=== PATIENT | female | born 1995 ===

== ENCOUNTER 2017-01-24 21:40 | Emergency (ER) | payer BC ==
[2017-01-24 22:18] LABS: Basophils % (Auto) 0.7 % (0.0-1.8); Eosinophils % (Auto) 0.5 % (0.0-4.3); Hematocrit 35.2 % (30.3-42.9); Hemoglobin 11.9 gm/dl (10.1-14.3); Mean Corpuscular HGB Conc 34 % (30-34); Mean Corpuscular Hemoglobin 30 pg (28-32); Mean Corpuscular Volume 89 fl (79-97); Platelet Count 236 K/mm3 (140-440); Red Blood Count 3.94 M/mm3 (3.65-5.03); Red Cell Distribution Width 16.2 % (13.2-15.2); White Blood Count 6.7 K/mm3 (4.5-11.0)
[2017-01-24 22:29] LABS: Anion Gap 21 mmol/L; BUN/Creatinine Ratio 13.33; Blood Urea Nitrogen 8 mg/dL (7-17); Calcium 8.6 mg/dL (8.4-10.2); Carbon Dioxide 20 mmol/L (22-30); Chloride 103.6 mmol/L (98-107); Glucose 94 mg/dL (65-100); Sodium 141 mmol/L (137-145)
[2017-01-24 23:09] LABS: Bilirubin,Urine NEG (Negative); Blood,Urine NEG (Negative); Ketones,Urine TR mg/dL (Negative); Leukocyte Esterase,Urine MOD (Negative); Mucus,Urine 3+ /HPF; Nitrite,Urine NEG (Negative); Urobilinogen,Urine < 2.0 mg/dL (<2.0)
[2017-01-25] MEDS ORDERED: TYLENOL ONE (00:39)
[2017-01-25] MEDS ORDERED: TYLENOL PO ONE (00:44)
--- NOTE | 2017-01-25 06:43 | Emergency Department Report ---
ED General Adult HPI - General Chief complaint: Abdominal Pain Stated complaint: ABD CRAMPING Time Seen by Provider: 01/25/17 06:31 Source: patient Mode of arrival: Ambulatory Limitations: No Limitations - History of Present Illness Initial comments: A she describes lower abdominal pain occurring approximately 2 weeks after her last normal cycle. She describes it as crampy and intermittent. It is not severe. She is resting comfortably. She has no other symptoms. She denies any difficulty in urinating vaginal discharge nausea vomiting or diarrhea. She states she's had this problem in the past. She does have an appointment with the production welder on the . She has had no fever. -: days(s) Location: abdomen Radiation: non-radiation Severity scale (0 -10): 3 Quality: other Consistency: intermittent Improves with: none Worsens with: none Associated Symptoms: denies other symptoms Treatments Prior to Arrival: none - Related Data Previous Rx's Medication Instructions Recorded Last Taken Type traMADol [Ultram] 50 mg PO Q6HR PRN #14 tablet 01/25/17 Unknown Rx Allergies Allergy/AdvReac Type Severity Reaction Status Date / Time No Known Allergies Allergy Verified 01/25/17 02:12 ED Review of Systems ROS: Stated complaint: ABD CRAMPING Other details as noted in HPI Constitutional: denies: chills, fever Eyes: denies: eye pain, eye discharge, vision change ENT: denies: ear pain, throat pain Respiratory: denies: cough, shortness of breath, wheezing Cardiovascular: denies: chest pain, palpitations Endocrine: no symptoms reported Gastrointestinal: as per HPI, abdominal pain. denies: nausea, diarrhea Genitourinary: denies: urgency, dysuria, discharge Musculoskeletal: denies: back pain, joint swelling, arthralgia Skin: denies: rash, lesions Neurological: denies: headache, weakness, paresthesias Psychiatric: denies: anxiety, depression Hematological/Lymphatic: denies: easy bleeding, easy bruising ED Past Medical Hx - Past Medical History Previous Medical History?: No - Surgical History Past Surgical History?: No - Social History Smoking Status: Current Every Day Smoker Substance Use Type: Alcohol - Medications Home Medications: Home Medications Medication Instructions Recorded Confirmed Last Taken Type traMADol [Ultram] 50 mg PO Q6HR PRN #14 tablet 01/25/17 Unknown Rx ED Physical Exam - General Limitations: No Limitations General appearance: alert, in no apparent distress - Head Head exam: Present: atraumatic, normocephalic - Eye Eye exam: Present: normal appearance - ENT ENT exam: Present: mucous membranes moist - Neck Neck exam: Present: normal inspection - Respiratory Respiratory exam: Present: normal lung sounds bilaterally. Absent: respiratory distress - Cardiovascular Cardiovascular Exam: Present: regular rate, normal rhythm. Absent: systolic murmur, diastolic murmur, rubs, gallop - GI/Abdominal GI/Abdominal exam: Present: soft, normal bowel sounds. Absent: distended, tenderness, guarding, rebound, rigid - Extremities Exam Extremities exam: Present: normal inspection - Back Exam Back exam: Present: normal inspection - Neurological Exam Neurological exam: Present: alert, oriented X3, CN II-XII intact. Absent: motor sensory deficit - Psychiatric Psychiatric exam: Present: normal affect, normal mood - Skin Skin exam: Present: warm, dry, intact, normal color. Absent: rash ED Course Vital Signs 01/24/17 01/25/17 01/25/17 21:53 02:08 04:00 Temperature 99.4 F Pulse Rate 90 66 61 Respiratory 18 20 16 Rate Blood Pressure 125/80 Blood Pressure 115/56 88/54 [Left] O2 Sat by Pulse 99 99 99 Oximetry 01/25/17 06:00 Temperature Pulse Rate 65 Respiratory 16 Rate Blood Pressure Blood Pressure 89/56 [Left] O2 Sat by Pulse 100 Oximetry ED Medical Decision Making - Lab Data Result diagrams: 01/24/17 21:59 01/24/17 21:59 Laboratory Results - last 24 hr 01/24/17 01/24/17 01/24/17 21:59 21:59 21:59 WBC 6.7 RBC 3.94 Hgb 11.9 Hct 35.2 MCV 89 MCH 30 MCHC 34 RDW 16.2 H Plt Count 236 Lymph % (Auto) 28.8 [place] % (Auto) 10.5 H Eos % (Auto) 0.5 Baso % (Auto) 0.7 Lymph # 1.9 [place] # 0.7 Eos # 0.0 Baso # 0.0 Seg Neutrophils % 59.5 Seg Neutrophils # 4.0 Sodium 141 Potassium 4.0 Chloride 103.6 Carbon Dioxide 20 L Anion Gap 21 BUN 8 Creatinine 0.6 L Estimated GFR > 60 BUN/Creatinine Ratio 13.33 Glucose 94 Calcium 8.6 HCG, Qual Negative Urine Color Urine Turbidity Urine pH Ur Specific [place] Urine Protein Urine Glucose (UA) Urine Ketones Urine Blood Urine Nitrite Urine Bilirubin Urine Urobilinogen Ur Leukocyte Esterase Urine WBC (Auto) Urine RBC (Auto) U Epithel Cells (Auto) Calcium Oxalate Crystal Urine Mucus 01/24/17 22:15 WBC RBC Hgb Hct MCV MCH MCHC RDW Plt Count Lymph % (Auto) [place] % (Auto) Eos % (Auto) Baso % (Auto) Lymph # [place] # Eos # Baso # Seg Neutrophils % Seg Neutrophils # Sodium Potassium Chloride Carbon Dioxide Anion Gap BUN Creatinine Estimated GFR BUN/Creatinine Ratio Glucose Calcium HCG, Qual Urine Color Yellow Urine Turbidity Cloudy Urine pH 5.0 Ur Specific [place] 1.024 Urine Protein 30 mg/dl Urine Glucose (UA) Neg Urine Ketones Tr Urine Blood Neg Urine Nitrite Neg Urine Bilirubin Neg Urine Urobilinogen < 2.0 Ur Leukocyte Esterase Mod Urine WBC (Auto) 2.0 Urine RBC (Auto) 15.0 U Epithel Cells (Auto) 4.0 Calcium Oxalate Crystal 3+ Urine Mucus 3+ Critical care attestation.: If time is entered above; I have spent that time in minutes in the direct care of this critically ill patient, excluding procedure time. ED Disposition Clinical Impression: [facility] Abdominal pain Qualifiers: Abdominal location: lower abdomen, unspecified Qualified Code(s): R10.30 - Lower abdominal pain, unspecified Disposition: TO HOME OR SELFCARE Is pt being admited?: No Does the pt Need Aspirin: No Condition: Stable Instructions: Abdominal Pain (ED), [place] (ED) Additional Instructions: Return any acute change or worsening symptoms. Follow-up with your production welder. Rx as needed. Prescriptions: traMADol [Ultram] 50 mg PO Q6HR PRN #14 tablet PRN Reason: Pain Referrals: PRIMARY CARE, [Primary Care Provider] - 3-5 Days Time of Disposition: 06:49
[2017-01-25 07:15] VITALS: BP 105/67
--- NOTE | 2017-01-25 07:21 | Ultrasound Report ---
RIGHT UPPER QUADRANT ULTRASOUND: HISTORY: Upper abdominal pain. Technique: Transabdominal ultrasound imaging with Doppler interrogation. FINDINGS: The gallbladder is sonolucent with no evidence of stones, polyps or wall thickening. The common duct is normal in caliber. Images of the liver parenchyma, pancreas, right kidney and aorta are within normal limits. No perihepatic ascites. IMPRESSION: Unremarkable right upper quadrant ultrasound.
== END 2017-01-25 07:15 | disposition home or self-care (01) ==
LOC: ED 21:40
DX: N94.0 Mittelschmerz (principal); R10.30 Lower abdominal pain, unspecified; F17.200 Nicotine dependence, unspecified, uncomplicated
CPT/HCPCS: 36415; 76705; 80048; 81001; 84484; 84703; 85025